=== PATIENT | female | born 1930 | race Caucasian/White ===

== ENCOUNTER 2016-10-01 15:19 | Inpatient (IN) | payer OTHER ==
[~2016-10-01] VITALS: Ht 165.1 cm; Wt 50.4 kg
[~2016-10-01 15:19] MED LIST: ACET325T14 PO; ALBU8.5H3 INH; ALEN70TA3 PO; ALPR0.25 PO; ASPI-496 PO; ATEN25TA PO; BISA10SU65 PR; CALC250T PO; CHOL20003 PO; DOXY100C2 PO; Docusate Sodium PO; FLUT1DIS3 INH; GUAI5SYR PO; IBUP200C PO; IPRA3AMP NPPB; LACT1CAP24 PO; MULT-658 PO; NICO1PAT4 TD; OMEG1CAP6 PO; PARO20TA55 PO; PRED10TA PO; SIMV40TA3 PO; TIOT18CA INH; VITA1CAP PO
[2016-10-01] MEDS ORDERED: ALBUTEROL/IPRATROPIUM 2.5MG/0.5MG, 3 ML NPPB SCH (15:30)
[2016-10-01] MEDS ORDERED: SODIUM CHLORIDE FLUSH 10ML SYR IVF ONE (15:30)
[2016-10-01] MEDS ORDERED: methylPREDNISolone SOD SUCC 125 MG/2 ML IVP ONE (15:30)
[2016-10-01] MEDS ORDERED: methylPREDNISolone SOD SUCC 125 MG/2 ML ONE (15:48)
[2016-10-01] MEDS ORDERED: ALBUTEROL/IPRATROPIUM 2.5MG/0.5MG, 3 ML ONE (15:48)
[2016-10-01] MEDS: PLEASE ENTER HEIGHT AND WEIGHT MC SCH ×2 (15:50→16:47)
[2016-10-01 16:00] LABS: BLOOD UREA NITROGEN 17 mg/dL (7-18)
[2016-10-01 16:03] LABS: IS PT STATUS REG ER OR PRE ER? YES
[2016-10-01 16:16] LABS: ABG COLLECTION SITE LEFT RADIAL; COLLATERAL CIRCULATION TESTING NORMAL
[2016-10-01] MEDS: methylPREDNISolone SOD SUCC 40 MG/ML IV SCH (16:46)
[2016-10-01] MEDS ORDERED: BISACODYL 10 MG SUPP PR PRN ×2 (17:00→18:00)
[2016-10-01] MEDS ORDERED: GUAIFENESIN/DM 100-10MG, 5ML UDC PO PRN (17:00)
[2016-10-01] MEDS ORDERED: ALBUTEROL SULFATE INH PRN (17:00)
[2016-10-01] MEDS ORDERED: ACETAMINOPHEN 325 MG TABLET PO PRN (17:00)
[2016-10-01] MEDS ORDERED: MORPHINE SULFATE 4 MG/ML, 1ML IVPush PRN (18:00)
[2016-10-01] MEDS ORDERED: POLYETHYLENE GLYCOL 17 GM PACKET PO PRN (18:00)
[2016-10-01] MEDS ORDERED: DOCUSATE 100 MG CAPSULE PO PRN (18:00)
[2016-10-01] MEDS: SODIUM CHLORIDE 0.9% 1,000 ML IV SCH ×2 (18:06→20:00)
[2016-10-01] MEDS ORDERED: HEPARIN 5,000 UNITS/ML, 1ML IV ONE (18:30)
[2016-10-01] MEDS ORDERED: HEPARIN 5,000 UNITS/ML, 1ML IV PRN (18:30)
[2016-10-01] MEDS ORDERED: HEPARIN 25,000 UNITS/500ML PMX 500 ML IV PRN (18:30)
[2016-10-01 18:36] LABS: IS PT STATUS REG ER OR PRE ER? YES
[2016-10-01 20:00] VITALS: BP 106/69
[2016-10-01] MEDS: NICOTINE 14MG/24 HR PATCH.TD24 TD SCH (23:00)
[2016-10-02 00:17] LABS: IS PT STATUS REG ER OR PRE ER? NO
[2016-10-02] MEDS: methylPREDNISolone SOD SUCC 40 MG/ML IV SCH ×3 (02:01→18:22)
[2016-10-02 02:06] VITALS: BP 103/65
[2016-10-02 05:53] LABS: ASPARTATE AMINO TRANSFERASE 40 U/L (15-37); BLOOD UREA NITROGEN 17 mg/dL (7-18)
[2016-10-02] MEDS: SODIUM CHLORIDE 0.9% 1,000 ML IV SCH ×2 (05:53→18:25)
[2016-10-02] MEDS: ASPIRIN 81 MG TABLET EC PO SCH (05:53)
[2016-10-02 06:41] VITALS: BP 125/67
[2016-10-02] MEDS: ALBUTEROL/IPRATROPIUM 2.5MG/0.5MG, 3 ML NPPB PRN ×2 (07:01→14:35)
[2016-10-02] MEDS ORDERED: ASPIRIN 81 MG TABLET EC PO SCH (09:00)
[2016-10-02] MEDS: IBUPROFEN 200 MG TABLET PO SCH ×4 (09:00→20:09)
[2016-10-02] MEDS: MULTIVITAMIN 1 TABLET PO SCH (10:43)
[2016-10-02] MEDS: PAROXETINE 20 MG TABLET PO SCH (10:44)
[2016-10-02] MEDS: SIMVASTATIN 40 MG TABLET PO SCH (10:44)
[2016-10-02 11:34] LABS: IS PT STATUS REG ER OR PRE ER? NO
[2016-10-02 12:56] VITALS: BP 118/65
[2016-10-02] MEDS: NICOTINE 14MG/24 HR PATCH.TD24 TD SCH (17:00)
[2016-10-02 18:21] VITALS: BP 135/79
[2016-10-02] MEDS: METOPROLOL TARTRATE 25 MG TABLET PO SCH (18:22)
[2016-10-02 18:59] VITALS: BP 138/80
[2016-10-03] MEDS: methylPREDNISolone SOD SUCC 40 MG/ML IV SCH ×3 (00:11→17:58)
[2016-10-03 03:04] VITALS: BP 113/68
[2016-10-03 05:15] VITALS: BP 124/70
[2016-10-03] MEDS: ASPIRIN 81 MG TABLET EC PO SCH (05:25)
[2016-10-03] MEDS: METOPROLOL TARTRATE 25 MG TABLET PO SCH ×2 (05:28→17:58)
[2016-10-03 07:39] VITALS: BP 136/71
[2016-10-03] MEDS: ALBUTEROL/IPRATROPIUM 2.5MG/0.5MG, 3 ML NPPB PRN (08:00)
[2016-10-03] MEDS: SIMVASTATIN 40 MG TABLET PO SCH (09:04)
[2016-10-03] MEDS: PAROXETINE 20 MG TABLET PO SCH (09:04)
[2016-10-03] MEDS: MULTIVITAMIN 1 TABLET PO SCH (09:04)
[2016-10-03] MEDS: IBUPROFEN 200 MG TABLET PO SCH ×3 (09:05→20:01)
[2016-10-03] MEDS ORDERED: HEPARIN 5,000 UNITS/ML, 1ML SQ SCH (11:00)
[2016-10-03 12:36] VITALS: BP 143/73
[2016-10-03] MEDS: HEPARIN 5,000 UNITS/ML, 1ML SQ SCH ×2 (12:36→19:59)
[2016-10-03] MEDS: LISINOPRIL 5 MG TABLET PO SCH (12:36)
[2016-10-03] MEDS: CLOPIDOGREL 75 MG TABLET PO SCH (12:36)
[2016-10-03 15:01] VITALS: BP 139/75
[2016-10-03] MEDS: NICOTINE 14MG/24 HR PATCH.TD24 TD SCH (17:57)
[2016-10-03 19:23] VITALS: BP 157/77
[2016-10-04] MEDS: methylPREDNISolone SOD SUCC 40 MG/ML IV SCH ×2 (00:31→09:56)
[2016-10-04 03:30] LABS: BLOOD UREA NITROGEN 21 mg/dL (7-18)
[2016-10-04 04:21] VITALS: BP 133/69
[2016-10-04] MEDS: HEPARIN 5,000 UNITS/ML, 1ML SQ SCH ×3 (04:22→21:19)
[2016-10-04] MEDS: ASPIRIN 81 MG TABLET EC PO SCH (05:34)
[2016-10-04] MEDS: METOPROLOL TARTRATE 25 MG TABLET PO SCH ×2 (05:34→18:30)
[2016-10-04 05:35] VITALS: BP 146/75
[2016-10-04 07:14] VITALS: BP 137/67
[2016-10-04] MEDS: IBUPROFEN 200 MG TABLET PO SCH ×3 (09:00→21:19)
[2016-10-04] MEDS: PAROXETINE 20 MG TABLET PO SCH (09:57)
[2016-10-04] MEDS: CLOPIDOGREL 75 MG TABLET PO SCH (09:57)
[2016-10-04] MEDS: LISINOPRIL 5 MG TABLET PO SCH (09:57)
[2016-10-04] MEDS: MULTIVITAMIN 1 TABLET PO SCH (09:57)
[2016-10-04] MEDS: SIMVASTATIN 40 MG TABLET PO SCH (09:57)
[2016-10-04 13:46] VITALS: BP 118/72
[2016-10-04] MEDS: NICOTINE 14MG/24 HR PATCH.TD24 TD SCH (17:00)
[2016-10-04 18:28] VITALS: BP 110/68
[2016-10-04 20:00] VITALS: BP 111/65
[2016-10-05 01:21] VITALS: BP 124/70
[2016-10-05 05:39] VITALS: BP 127/75
[2016-10-05] MEDS: METOPROLOL TARTRATE 25 MG TABLET PO SCH (05:40)
[2016-10-05] MEDS: HEPARIN 5,000 UNITS/ML, 1ML SQ SCH ×2 (05:40→13:00)
[2016-10-05] MEDS: ASPIRIN 81 MG TABLET EC PO SCH (05:40)
[2016-10-05 06:00] LABS: BLOOD UREA NITROGEN 25 mg/dL (7-18)
[2016-10-05 07:42] VITALS: BP 127/70
[2016-10-05] MEDS: CLOPIDOGREL 75 MG TABLET PO SCH (07:48)
[2016-10-05] MEDS: LISINOPRIL 5 MG TABLET PO SCH (07:48)
[2016-10-05] MEDS: MULTIVITAMIN 1 TABLET PO SCH (07:48)
[2016-10-05] MEDS: IBUPROFEN 200 MG TABLET PO SCH (07:48)
[2016-10-05] MEDS: PAROXETINE 20 MG TABLET PO SCH (07:48)
[2016-10-05 13:11] VITALS: BP 103/56
[2016-10-05] MEDS ORDERED: PRED10TA PO (14:32)
== END 2016-10-05 16:20 | disposition home health service (06) | DRG 682 ==
LOC: ED 18:12 → EDIP 18:31 → 5SO 19:25 → DCLOUNGE 10-05 15:51
PROVIDERS: ADMIT Internal Medicine; ATTEND Internal Medicine
DX: N17.0 Acute kidney failure with tubular necrosis (principal); J96.01 Acute respiratory failure with hypoxia; E87.2 Acidosis; J44.1 Chronic obstructive pulmonary disease with (acute) exacerbation; D72.829 Elevated white blood cell count, unspecified; E78.00 Pure hypercholesterolemia, unspecified; E78.5 Hyperlipidemia, unspecified; E86.0 Dehydration; F32.9 Major depressive disorder, single episode, unspecified; F41.9 Anxiety disorder, unspecified; I10 Essential (primary) hypertension; I25.2 Old myocardial infarction; I27.2 Other secondary pulmonary hypertension; I44.7 Left bundle-branch block, unspecified; I95.9 Hypotension, unspecified; M81.0 Age-related osteoporosis without current pathological fracture; M19.90 Unspecified osteoarthritis, unspecified site; Z51.5 Encounter for palliative care; Z66 Do not resuscitate; Z79.83 Long term (current) use of bisphosphonates; Z80.8 Family history of malignant neoplasm of other organs or systems; Z83.3 Family history of diabetes mellitus; Z86.73 Personal history of transient ischemic attack (TIA), and cerebral infarction without residual deficits; Z87.891 Personal history of nicotine dependence; Z99.81 Dependence on supplemental oxygen; Z79.82 Long term (current) use of aspirin; Z79.899 Other long term (current) drug therapy
CPT/HCPCS: 36415; 36600; 71010; 80048; 80053; 80061; 81001; 82040; 82803; 83605; 83735; 83880; 84100; 84145; 84443; 84484; 85025; 85520; 85610; 85730; 87040; 87086; 93005; 93306; 94640; 96361; 96374; J1644; J7620; J2920; J2930; J7030; J7512

== ENCOUNTER 2017-04-27 04:18 | Inpatient (IN) | payer OTHER ==
[~2017-04-27] VITALS: Ht 165.1 cm; Wt 52.6 kg
[~2017-04-27 04:18] MED LIST changes: -ALBU8.5H3 INH; +ALBU8.5H8 INH; +CHOL2000 PO; -CHOL20003 PO; -IBUP200C PO; +IBUP200C5 PO; +NICO-486 TD; -NICO1PAT4 TD; -PARO20TA55 PO; +PARO20TA98 PO
[2017-04-27] MEDS ORDERED: methylPREDNISolone SOD SUCC 125 MG/2 ML ONE (04:27)
[2017-04-27 04:50] LABS: HEMATOCRIT 38.2 % (34.6-47.8); HEMOGLOBIN 12.9 g/dL (11.7-16.4); WHITE BLOOD COUNT 12.4 x10^3/uL (3.4-10)
[2017-04-27] MEDS ORDERED: TIOT4MIS3 INH (04:57)
[2017-04-27] MEDS ORDERED: SODIUM CHLORIDE 0.9% 1,000ML IVBOLUS ONE (05:00)
[2017-04-27] MEDS ORDERED: methylPREDNISolone SOD SUCC 125 MG/2 ML IVP ONE (05:00)
[2017-04-27 05:02] LABS: ASPARTATE AMINO TRANSFERASE 27 U/L (15-37); BLOOD UREA NITROGEN 13 mg/dL (7-18)
[2017-04-27 05:07] LABS: IS PT STATUS REG ER OR PRE ER? YES
[2017-04-27] MEDS ORDERED: ENOXAPARIN 40 MG/0.4 ML SQ SCH (05:30)
[2017-04-27] MEDS ORDERED: ALBUTEROL/IPRATROPIUM 2.5MG/0.5MG, 3 ML HHN SCH (05:30)
[2017-04-27] MEDS: methylPREDNISolone SOD SUCC 40 MG/ML IVPush SCH ×4 (05:30→23:47)
[2017-04-27 05:37] LABS: DIFF TOTAL CELLS COUNTED 100 CELL DIFF
[2017-04-27 05:39] LABS: VERIFY COUNTS? YES
[2017-04-27] MEDS ORDERED: LEVOFLOXACIN/PMX 500MG/100ML 100 ML ONE (06:35)
[2017-04-27] MEDS ORDERED: ENOXAPARIN 40 MG/0.4 ML ONE (06:52)
[2017-04-27] MEDS: LEVOFLOXACIN/PMX 500MG/100ML 100 ML IVPB SCH (07:30)
[2017-04-27] MEDS ORDERED: ALBUTEROL SULFATE 2.5 MG/3 ML NPPB PRN (09:00)
[2017-04-27] MEDS: ASPIRIN 81 MG TABLET EC PO SCH (09:38)
[2017-04-27] MEDS: PAROXETINE 20 MG TABLET PO SCH (09:38)
[2017-04-27] MEDS: SIMVASTATIN 40 MG TABLET PO SCH (09:38)
[2017-04-27] MEDS: SODIUM CHLORIDE FLUSH 10ML SYR IVF SCH ×2 (09:39→23:47)
[2017-04-27 10:41] VITALS: BP 141/80
[2017-04-27 11:52] LABS: IS PT STATUS REG ER OR PRE ER? NO
[2017-04-27 12:35] VITALS: BP 146/75
[2017-04-27 12:54] VITALS: BP 134/76
[2017-04-27] MEDS: SODIUM CHLORIDE 0.9% 1,000 ML IV SCH (12:55)
[2017-04-27] MEDS ORDERED: HEPARIN 5,000 UNITS/ML, 1ML IV PRN (14:30)
[2017-04-27] MEDS ORDERED: HEPARIN 5,000 UNITS/ML, 1ML IV ONE (14:30)
[2017-04-27] MEDS: HEPARIN 25,000 UNITS/500ML PMX 500 ML IV PRN (16:41)
[2017-04-27 19:47] VITALS: BP 135/76
[2017-04-27] MEDS ORDERED: ALBUTEROL SULFATE 2.5 MG/3 ML NPPB SCH (21:00)
[2017-04-28 02:00] VITALS: BP 144/74
[2017-04-28] MEDS: SODIUM CHLORIDE 0.9% 1,000 ML IV SCH ×2 (02:31→15:54)
[2017-04-28] MEDS: LEVOFLOXACIN/PMX 500MG/100ML 100 ML IVPB SCH (05:52)
[2017-04-28] MEDS: methylPREDNISolone SOD SUCC 40 MG/ML IVPush SCH ×2 (05:52→20:49)
[2017-04-28] MEDS: HEPARIN 25,000 UNITS/500ML PMX 500 ML IV PRN (05:54)
[2017-04-28 06:35] VITALS: BP 145/73
[2017-04-28 08:12] LABS: HEMATOCRIT 34.2 % (34.6-47.8); HEMOGLOBIN 11.6 g/dL (11.7-16.4); WHITE BLOOD COUNT 8.8 x10^3/uL (3.4-10)
[2017-04-28 08:15] LABS: ASPARTATE AMINO TRANSFERASE 29 U/L (15-37); BLOOD UREA NITROGEN 13 mg/dL (7-18)
[2017-04-28 08:19] LABS: IS PT STATUS REG ER OR PRE ER? NO
[2017-04-28] MEDS: PAROXETINE 20 MG TABLET PO SCH (08:48)
[2017-04-28] MEDS: SIMVASTATIN 40 MG TABLET PO SCH (08:48)
[2017-04-28] MEDS: SODIUM CHLORIDE FLUSH 10ML SYR IVF SCH ×2 (08:49→20:48)
[2017-04-28] MEDS: ASPIRIN 81 MG TABLET EC PO SCH (08:49)
[2017-04-28] MEDS: TIOTROPIUM INH SCH (09:00)
[2017-04-28] MEDS: OLODATEROL INH SCH (09:00)
[2017-04-28] MEDS ORDERED: POTASSIUM CHLORIDE 20 MEQ TAB.ER.PRT PO ONE (09:30)
[2017-04-28] MEDS ORDERED: OMNIPAQUE 350 MG/ML, 100ML BOTTLE ONE (11:02)
[2017-04-28 14:40] VITALS: BP 148/67
[2017-04-28] MEDS ORDERED: ALBUTEROL SULFATE 2.5 MG/3 ML ONE (18:48)
[2017-04-28 19:02] VITALS: BP 136/81
[2017-04-28] MEDS ORDERED: SODIUM CHLORIDE 0.9% 1,000 ML IV SCH (20:00)
[2017-04-28] MEDS ORDERED: ALBUTEROL SULFATE 2.5 MG/3 ML NPPB SCH ×2 (21:00)
[2017-04-29 02:29] VITALS: BP 156/81
[2017-04-29] MEDS: LEVOFLOXACIN/PMX 500MG/100ML 100 ML IVPB SCH (05:03)
[2017-04-29 05:04] VITALS: BP 131/84
[2017-04-29 05:59] LABS: HEMOGLOBIN 11.4 g/dL (11.7-16.4)
[2017-04-29 06:05] LABS: BLOOD UREA NITROGEN 18 mg/dL (7-18)
[2017-04-29 08:20] VITALS: BP 165/77
[2017-04-29] MEDS: PAROXETINE 20 MG TABLET PO SCH (08:51)
[2017-04-29] MEDS: SIMVASTATIN 40 MG TABLET PO SCH (08:52)
[2017-04-29] MEDS: ASPIRIN 81 MG TABLET EC PO SCH (08:52)
[2017-04-29] MEDS: methylPREDNISolone SOD SUCC 40 MG/ML IVPush SCH (08:53)
[2017-04-29] MEDS: TIOTROPIUM INH SCH (08:53)
[2017-04-29] MEDS: OLODATEROL INH SCH (08:53)
[2017-04-29] MEDS: SODIUM CHLORIDE FLUSH 10ML SYR IVF SCH (08:55)
[2017-04-29] MEDS ORDERED: PRED10TA PO (12:04)
[2017-04-29] MEDS ORDERED: ALBUTEROL SULFATE 2.5 MG/3 ML NPPB PRN (15:00)
== END 2017-04-29 14:33 | disposition home or self-care (01) | DRG 682 ==
LOC: ED 05:03 → EDIP 05:12 → 4WST 07:52
PROVIDERS: ADMIT Family Medicine; ATTEND Family Medicine
PROC: 5A09357 Assistance with Respiratory Ventilation, Less than 24 Consecutive Hours, Continuous Positive Airway Pressure (ICD-10-PCS; principal; 2017-04-27)
DX: N17.9 Acute kidney failure, unspecified (principal); J96.20 Acute and chronic respiratory failure, unspecified whether with hypoxia or hypercapnia; E87.2 Acidosis; J44.1 Chronic obstructive pulmonary disease with (acute) exacerbation; F41.9 Anxiety disorder, unspecified; F32.9 Major depressive disorder, single episode, unspecified; D72.829 Elevated white blood cell count, unspecified; E78.5 Hyperlipidemia, unspecified; E87.6 Hypokalemia; F41.1 Generalized anxiety disorder; I10 Essential (primary) hypertension; M81.0 Age-related osteoporosis without current pathological fracture; Z66 Do not resuscitate; Z83.3 Family history of diabetes mellitus; Z86.73 Personal history of transient ischemic attack (TIA), and cerebral infarction without residual deficits; Z87.891 Personal history of nicotine dependence; Z80.9 Family history of malignant neoplasm, unspecified
CPT/HCPCS: 36415; 71010; 71275; 78582; 80048; 80053; 83605; 83735; 84145; 84443; 84484; 85025; 85379; 85520; 87040; 93005; 94640; 94660; 96372; 96374; J1644; J1650; J1956; J7613; Q9967; A9540; A9558; C9898; J2920; J2930; J7030

== ENCOUNTER 2017-09-13 00:04 | Inpatient (IN) | payer OTHER ==
[~2017-09-13] VITALS: Ht 162.6 cm; Wt 53.5 kg
[~2017-09-13 00:04] MED LIST changes: +TIOT4MIS3 INH
[2017-09-13] MEDS ORDERED: ALBUTEROL/IPRATROPIUM 2.5MG/0.5MG, 3 ML ONE (00:11)
[2017-09-13] MEDS ORDERED: methylPREDNISolone SOD SUCC 125 MG/2 ML ONE (00:19)
[2017-09-13] MEDS ORDERED: KETAMINE 10 MG/ML, 20ML ONE (00:20)
[2017-09-13] MEDS ORDERED: SODIUM CHLORIDE FLUSH 10ML SYR IVF ONE (00:30)
[2017-09-13] MEDS ORDERED: KETAMINE 100 MG/ML, 5ML IV ONE (00:30)
[2017-09-13] MEDS ORDERED: methylPREDNISolone SOD SUCC 125 MG/2 ML IVP ONE (00:30)
[2017-09-13 01:21] LABS: ALANINE AMINOTRANSFERASE 35 U/L (12-78); ALBUMIN 3.6 g/dL (3.4-5.0); ANION GAP 10 mmol/L (5-15); CALCIUM 8.1 mg/dL (8.5-10.1); CHLORIDE 103 mmol/L (98-107); CREATININE 1.18 mg/dL (0.55-1.02)
[2017-09-13 01:25] LABS: ALKALINE PHOSPHATASE 81 U/L (45-117); BILIRUBIN,TOTAL 0.4 mg/dL (0.2-1.0); TROPONIN I 0.069 ng/mL (0.000-0.045)
[2017-09-13 01:35] LABS: INTERNATIONAL NORMALIZED RATIO 0.97 (0.93-1.1)
[2017-09-13 01:54] LABS: MEAN CORPUSCULAR HEMOGLOBIN 29.8 pg (27.0-34.8); MEAN CORPUSCULAR HGB CONC 33.3 g/dL (32.4-35.8); MEAN CORPUSCULAR VOLUME 89.6 fL (80-100); MEAN PLATELET VOLUME 8.3 fL (7.4-10.4); PLATELET COUNT 312 x10^3/uL (130-400); RED BLOOD COUNT 4.45 x10^6/uL (3.82-5.3); RED CELL DISTRIBUTION WIDTH 14.7 % (9.6-15.2)
[2017-09-13 02:28] LABS: BASOPHILS # (AUTO) 0.06 x10^3/uL (0-0.1); BASOPHILS % (AUTO) 1 % (0-1); EOSINOPHILS # (AUTO) 1.31 x10^3/uL (0-0.4); EOSINOPHILS % (AUTO) 10 % (1-7); LYMPHOCYTES # (AUTO) 5.27 x10^3/uL (1-3.4); LYMPHOCYTES % (AUTO) 40 % (22-44); MD SCAN; MONOCYTES % (AUTO) 5 % (2-9); NEUTROPHILS # (AUTO) 5.88 x10^3/uL (1.8-6.8); NEUTROPHILS % (AUTO) 45 % (42-75)
[2017-09-13] MEDS ORDERED: MAGNESIUM SULFATE 1 GM in SODIUM CHLORIDE 0.9% 50 ML IV ONE (02:30)
[2017-09-13] MEDS ORDERED: MAGNESIUM SULFATE 1 GM/2 ML IVPush ONE (02:30)
[2017-09-13] MEDS ORDERED: SODIUM CHLORIDE 0.9% 1,000 ML IV SCH (03:41)
[2017-09-13] MEDS ORDERED: ALBUTEROL SULFATE 2.5 MG/3 ML HHN PRN (04:00)
[2017-09-13] MEDS ORDERED: ALBUTEROL/IPRATROPIUM 2.5MG/0.5MG, 3 ML NPPB PRN ×2 (04:00→05:00)
[2017-09-13] MEDS ORDERED: ONDANSETRON 2MG/ML, 2ML IVPush PRN (04:00)
[2017-09-13] MEDS ORDERED: ENOXAPARIN 40 MG/0.4 ML SQ SCH (04:00)
[2017-09-13] MEDS ORDERED: ACETAMINOPHEN 325 MG TABLET PO PRN (04:00)
[2017-09-13] MEDS ORDERED: morphine SULFATE 10 MG/ML, 1ML IVPush PRN (04:00)
[2017-09-13] MEDS ORDERED: POLYETHYLENE GLYCOL 17 GM PACKET PO PRN (04:00)
[2017-09-13] MEDS: methylPREDNISolone SOD SUCC 125 MG/2 ML IVPush SCH ×3 (06:24→17:44)
[2017-09-13] MEDS: ALBUTEROL/IPRATROPIUM 2.5MG/0.5MG, 3 ML NPPB SCH ×4 (06:36→19:40)
[2017-09-13] MEDS: OMEGA-3/FISH OIL CAPSULE PO SCH (08:31)
[2017-09-13] MEDS: CALCIUM CARBONATE 500 MG TAB.CHEW PO SCH ×2 (08:31→20:14)
[2017-09-13] MEDS: PAROXETINE 20 MG TABLET PO SCH (08:31)
[2017-09-13] MEDS: ASPIRIN 81 MG TABLET EC PO SCH (08:31)
[2017-09-13] MEDS: SIMVASTATIN 40 MG TABLET PO SCH (08:31)
[2017-09-13] MEDS: MULTIVITAMIN 1 TABLET PO SCH (08:31)
[2017-09-13] MEDS: DOCUSATE 100 MG CAPSULE PO SCH ×2 (08:31→20:14)
[2017-09-13] MEDS: CHOLECALCIFEROL 1,000 UNIT TABLET PO SCH (08:32)
[2017-09-13] MEDS: TEMPLATE NON-FORMULARY MED. (Tiotropium Br/Olodaterol HCl (Stiolto Respimat Inhal Spray) 2 INH SCH (08:39)
[2017-09-13 09:02] LABS: TROPONIN I 0.294 ng/mL (0.000-0.045)
[2017-09-13] MEDS: DOXYCYCLINE 100MG TABLET PO SCH ×2 (10:47→20:14)
[2017-09-13] MEDS: INSULIN LISPRO 100 UNITS/ML, PEN SQ-INSULIN SCH ×3 (12:40→20:14)
[2017-09-13 13:10] VITALS: BP 108/65
[2017-09-13 14:26] LABS: TROPONIN I 0.187 ng/mL (0.000-0.045)
[2017-09-13 19:59] VITALS: BP 162/79
[2017-09-14] MEDS: methylPREDNISolone SOD SUCC 125 MG/2 ML IVPush SCH ×5 (00:05→23:46)
[2017-09-14 01:09] VITALS: BP 119/66
[2017-09-14] MEDS ORDERED: ENOXAPARIN 30 MG/0.3 ML SQ SCH (05:00)
[2017-09-14 05:12] LABS: MEAN CORPUSCULAR HEMOGLOBIN 29.2 pg (27.0-34.8); MEAN CORPUSCULAR HGB CONC 33.1 g/dL (32.4-35.8); MEAN PLATELET VOLUME 8.1 fL (7.4-10.4); PLATELET COUNT 286 x10^3/uL (130-400); RED BLOOD COUNT 4.02 x10^6/uL (3.82-5.3); RED CELL DISTRIBUTION WIDTH 14.4 % (9.6-15.2)
[2017-09-14 05:17] LABS: ANION GAP 5 mmol/L (5-15); CALCIUM 8.7 mg/dL (8.5-10.1); CHLORIDE 109 mmol/L (98-107); CREATININE 0.96 mg/dL (0.55-1.02)
[2017-09-14 05:18] LABS: ALANINE AMINOTRANSFERASE 31 U/L (12-78); ALBUMIN 3.7 g/dL (3.4-5.0)
[2017-09-14 05:19] LABS: ALKALINE PHOSPHATASE 68 U/L (45-117); BILIRUBIN,TOTAL 0.4 mg/dL (0.2-1.0); TOTAL PROTEIN 6.7 g/dL (6.4-8.2)
[2017-09-14 05:53] LABS: BASOPHILS # (AUTO) 0.02 x10^3/uL (0-0.1); BASOPHILS % (AUTO) 0 % (0-1); EOSINOPHILS % (AUTO) 0 % (1-7); LYMPHOCYTES # (AUTO) 1.24 x10^3/uL (1-3.4); LYMPHOCYTES % (AUTO) 12 % (22-44); MD SCAN; MONOCYTES # (AUTO) 0.59 x10^3/uL (0.2-0.8); MONOCYTES % (AUTO) 6 % (2-9); NEUTROPHILS # (AUTO) 8.13 x10^3/uL (1.8-6.8); NEUTROPHILS % (AUTO) 82 % (42-75)
[2017-09-14] MEDS: ALBUTEROL/IPRATROPIUM 2.5MG/0.5MG, 3 ML NPPB SCH ×4 (07:00→18:54)
[2017-09-14] MEDS: MULTIVITAMIN 1 TABLET PO SCH (08:01)
[2017-09-14] MEDS: OMEGA-3/FISH OIL CAPSULE PO SCH (08:01)
[2017-09-14] MEDS: CALCIUM CARBONATE 500 MG TAB.CHEW PO SCH ×2 (08:01→20:40)
[2017-09-14] MEDS: ASPIRIN 81 MG TABLET EC PO SCH (08:01)
[2017-09-14] MEDS: CHOLECALCIFEROL 1,000 UNIT TABLET PO SCH (08:01)
[2017-09-14] MEDS: DOXYCYCLINE 100MG TABLET PO SCH ×2 (08:01→20:40)
[2017-09-14] MEDS: PAROXETINE 20 MG TABLET PO SCH (08:02)
[2017-09-14] MEDS: DOCUSATE 100 MG CAPSULE PO SCH ×2 (08:02→20:40)
[2017-09-14] MEDS: SIMVASTATIN 40 MG TABLET PO SCH (08:02)
[2017-09-14] MEDS: TEMPLATE NON-FORMULARY MED. (Tiotropium Br/Olodaterol HCl (Stiolto Respimat Inhal Spray) 2 INH SCH (08:03)
[2017-09-14 08:20] VITALS: BP 137/76
[2017-09-14] MEDS: INSULIN LISPRO 100 UNITS/ML, PEN SQ-INSULIN SCH ×4 (08:30→20:41)
[2017-09-14 08:53] LABS: TROPONIN I 0.099 ng/mL (0.000-0.045)
[2017-09-14] MEDS ORDERED: SODIUM CHLORIDE 0.9% 1,000 ML IV SCH (09:00)
[2017-09-14] MEDS ORDERED: LORazepam 0.5MG TABLET PO PRN (11:00)
[2017-09-14 13:32] LABS: HEMOGLOBIN A1C 5.8 % (4.2-6.3)
[2017-09-14 15:28] VITALS: BP 147/97
[2017-09-14] MEDS ORDERED: GUAIFENESIN/DM 100-10MG, 5ML UDC PO PRN (16:00)
[2017-09-14] MEDS: CARVEDILOL 3.125 MG TABLET PO SCH (18:09)
[2017-09-14 19:54] VITALS: BP 163/88
[2017-09-15 01:25] VITALS: BP 127/80
[2017-09-15] MEDS: SODIUM CHLORIDE 0.9% 1,000 ML IV SCH (04:06)
[2017-09-15] MEDS: methylPREDNISolone SOD SUCC 125 MG/2 ML IVPush SCH (06:05)
[2017-09-15] MEDS: CARVEDILOL 3.125 MG TABLET PO SCH ×2 (06:05→18:47)
[2017-09-15] MEDS: ENOXAPARIN 40 MG/0.4 ML SQ SCH (06:05)
[2017-09-15] MEDS: ALBUTEROL/IPRATROPIUM 2.5MG/0.5MG, 3 ML NPPB SCH ×4 (07:00→19:55)
[2017-09-15] MEDS: INSULIN LISPRO 100 UNITS/ML, PEN SQ-INSULIN SCH ×4 (07:00→20:37)
[2017-09-15 07:54] VITALS: BP 163/85
[2017-09-15 08:16] VITALS: BP 163/85
[2017-09-15] MEDS: DOCUSATE 100 MG CAPSULE PO SCH ×2 (09:00→20:37)
[2017-09-15] MEDS: PAROXETINE 20 MG TABLET PO SCH (10:55)
[2017-09-15] MEDS: CHOLECALCIFEROL 1,000 UNIT TABLET PO SCH (10:55)
[2017-09-15] MEDS: MULTIVITAMIN 1 TABLET PO SCH (10:55)
[2017-09-15] MEDS: ASPIRIN 81 MG TABLET EC PO SCH (10:55)
[2017-09-15] MEDS: TEMPLATE NON-FORMULARY MED. (Tiotropium Br/Olodaterol HCl (Stiolto Respimat Inhal Spray) 2 INH SCH (10:55)
[2017-09-15] MEDS: OMEGA-3/FISH OIL CAPSULE PO SCH (10:55)
[2017-09-15] MEDS: DOXYCYCLINE 100MG TABLET PO SCH ×2 (10:56→20:37)
[2017-09-15] MEDS: SIMVASTATIN 40 MG TABLET PO SCH (10:56)
[2017-09-15] MEDS: HEPARIN 5,000 UNITS/ML, 1ML SQ SCH ×2 (10:56→20:37)
[2017-09-15] MEDS: CALCIUM CARBONATE 500 MG TAB.CHEW PO SCH ×2 (10:56→20:37)
[2017-09-15 15:05] VITALS: BP 159/81
[2017-09-15 18:35] VITALS: BP 139/75
[2017-09-16 01:38] VITALS: BP 146/77
[2017-09-16] MEDS: SODIUM CHLORIDE 0.9% 1,000 ML IV SCH ×2 (05:11→22:32)
[2017-09-16] MEDS: ENOXAPARIN 40 MG/0.4 ML SQ SCH (05:50)
[2017-09-16] MEDS: CARVEDILOL 3.125 MG TABLET PO SCH (05:50)
[2017-09-16] MEDS: INSULIN LISPRO 100 UNITS/ML, PEN SQ-INSULIN SCH ×2 (07:00→11:00)
[2017-09-16 07:03] VITALS: BP 156/89
[2017-09-16] MEDS: ALBUTEROL/IPRATROPIUM 2.5MG/0.5MG, 3 ML NPPB SCH ×4 (08:06→18:46)
[2017-09-16] MEDS ORDERED: methylPREDNISolone SOD SUCC 40 MG/ML IVPush SCH (09:00)
[2017-09-16] MEDS: TEMPLATE NON-FORMULARY MED. (Tiotropium Br/Olodaterol HCl (Stiolto Respimat Inhal Spray) 2 INH SCH (09:00)
[2017-09-16] MEDS: CHOLECALCIFEROL 1,000 UNIT TABLET PO SCH (09:20)
[2017-09-16] MEDS: CALCIUM CARBONATE 500 MG TAB.CHEW PO SCH ×2 (09:20→20:26)
[2017-09-16] MEDS: ASPIRIN 81 MG TABLET EC PO SCH (09:20)
[2017-09-16] MEDS: OMEGA-3/FISH OIL CAPSULE PO SCH (09:20)
[2017-09-16] MEDS: HEPARIN 5,000 UNITS/ML, 1ML SQ SCH ×2 (09:20→20:26)
[2017-09-16] MEDS: SIMVASTATIN 40 MG TABLET PO SCH (09:21)
[2017-09-16] MEDS: MULTIVITAMIN 1 TABLET PO SCH (09:21)
[2017-09-16] MEDS: DOCUSATE 100 MG CAPSULE PO SCH ×2 (09:21→20:26)
[2017-09-16] MEDS: PAROXETINE 20 MG TABLET PO SCH (09:21)
[2017-09-16 12:11] VITALS: BP 119/64
[2017-09-16] MEDS: CARVEDILOL 6.25 MG TABLET PO SCH (17:15)
[2017-09-16 19:50] VITALS: BP 115/62
[2017-09-17 01:18] VITALS: BP 142/79
[2017-09-17 05:31] VITALS: BP 146/93
[2017-09-17] MEDS: CARVEDILOL 6.25 MG TABLET PO SCH ×2 (05:33→18:03)
[2017-09-17] MEDS: ALBUTEROL/IPRATROPIUM 2.5MG/0.5MG, 3 ML NPPB SCH ×3 (07:00→15:00)
[2017-09-17] MEDS: CALCIUM CARBONATE 500 MG TAB.CHEW PO SCH (07:43)
[2017-09-17] MEDS: HEPARIN 5,000 UNITS/ML, 1ML SQ SCH (07:43)
[2017-09-17] MEDS: CHOLECALCIFEROL 1,000 UNIT TABLET PO SCH (07:43)
[2017-09-17] MEDS: OMEGA-3/FISH OIL CAPSULE PO SCH (07:43)
[2017-09-17] MEDS: SIMVASTATIN 40 MG TABLET PO SCH (07:43)
[2017-09-17] MEDS: DOCUSATE 100 MG CAPSULE PO SCH (07:43)
[2017-09-17] MEDS: MULTIVITAMIN 1 TABLET PO SCH (07:43)
[2017-09-17] MEDS: PAROXETINE 20 MG TABLET PO SCH (07:43)
[2017-09-17] MEDS: TEMPLATE NON-FORMULARY MED. (Tiotropium Br/Olodaterol HCl (Stiolto Respimat Inhal Spray) 2 INH SCH (07:44)
[2017-09-17] MEDS: ASPIRIN 81 MG TABLET EC PO SCH (07:44)
[2017-09-17 07:58] VITALS: BP 144/73
[2017-09-17] MEDS ORDERED: CARV6.2512 PO (12:25)
[2017-09-17 13:23] VITALS: BP 114/67
== END 2017-09-17 19:11 | disposition home health service (06) | DRG 189 ==
LOC: ED 02:08 → EDIP 02:37 → CCU 04:15 → 4EST 11:25
PROVIDERS: ADMIT Hospitalist; ATTEND Hospitalist
PROC: 5A09357 Assistance with Respiratory Ventilation, Less than 24 Consecutive Hours, Continuous Positive Airway Pressure (ICD-10-PCS; principal; 2017-09-13)
DX: J96.21 Acute and chronic respiratory failure with hypoxia (principal); E87.4 Mixed disorder of acid-base balance; I12.0 Hypertensive chronic kidney disease with stage 5 chronic kidney disease or end stage renal disease; I24.8 Other forms of acute ischemic heart disease; J44.1 Chronic obstructive pulmonary disease with (acute) exacerbation; Z99.81 Dependence on supplemental oxygen; T38.0X5A Adverse effect of glucocorticoids and synthetic analogues, initial encounter; R73.9 Hyperglycemia, unspecified; E78.5 Hyperlipidemia, unspecified; F41.1 Generalized anxiety disorder; F41.8 Other specified anxiety disorders; I44.7 Left bundle-branch block, unspecified; J98.4 Other disorders of lung; M81.0 Age-related osteoporosis without current pathological fracture; Z66 Do not resuscitate; Z86.73 Personal history of transient ischemic attack (TIA), and cerebral infarction without residual deficits; Z87.891 Personal history of nicotine dependence
CPT/HCPCS: 36415; 36600; 71045; 80053; 82803; 82962; 83036; 83605; 83735; 83880; 84100; 84484; 85025; 85610; 85730; 87040; 87081; 93005; 94640; 94660; 96365; 96375; J1644; J1650; J3475; J7620; J1815; J2930; J7030

== ENCOUNTER 2017-11-11 19:39 | Inpatient (IN) | payer OTHER ==
[~2017-11-11] VITALS: Ht 162.6 cm; Wt 53.0 kg
[~2017-11-11 19:39] MED LIST changes: +CARV6.2512 PO
[2017-11-11] MEDS ORDERED: ALBUTEROL 0.5%, 20ML ONE (19:50)
[2017-11-11] MEDS ORDERED: ALBUTEROL 0.5%, 20ML NPPB SCH (20:00)
[2017-11-11] MEDS ORDERED: SODIUM CHLORIDE FLUSH 10ML SYR IVF ONE (20:00)
[2017-11-11 20:07] LABS: BASOPHILS # (AUTO) 0.15 x10^3/uL (0-0.1); BASOPHILS % (AUTO) 2 % (0-1); EOSINOPHILS # (AUTO) 0.79 x10^3/uL (0-0.4); EOSINOPHILS % (AUTO) 8 % (1-7); LYMPHOCYTES # (AUTO) 3.56 x10^3/uL (1-3.4); LYMPHOCYTES % (AUTO) 36 % (22-44); MD NO; MEAN CORPUSCULAR HEMOGLOBIN 29.8 pg (27.0-34.8); MEAN CORPUSCULAR HGB CONC 33.9 g/dL (32.4-35.8); MEAN CORPUSCULAR VOLUME 87.9 fL (80-100); MEAN PLATELET VOLUME 7.9 fL (7.4-10.4); MONOCYTES # (AUTO) 1.15 x10^3/uL (0.2-0.8); MONOCYTES % (AUTO) 12 % (2-9); NEUTROPHILS # (AUTO) 4.16 x10^3/uL (1.8-6.8); NEUTROPHILS % (AUTO) 42 % (42-75); PLATELET COUNT 372 x10^3/uL (130-400); RED BLOOD COUNT 4.05 x10^6/uL (3.82-5.3); RED CELL DISTRIBUTION WIDTH 15.1 % (9.6-15.2)
[2017-11-11 20:08] LABS: ALANINE AMINOTRANSFERASE 30 U/L (12-78); ALBUMIN 3.9 g/dL (3.4-5.0); ANION GAP 8 mmol/L (5-15); CALCIUM 8.6 mg/dL (8.5-10.1); CHLORIDE 99 mmol/L (98-107); CREATININE 1.14 mg/dL (0.55-1.02)
[2017-11-11 20:12] LABS: ALKALINE PHOSPHATASE 75 U/L (45-117); BILIRUBIN,TOTAL 0.4 mg/dL (0.2-1.0); TOTAL PROTEIN 6.9 g/dL (6.4-8.2); TROPONIN I < 0.015 ng/mL (0.000-0.045)
[2017-11-11] MEDS ORDERED: METH4TAB PO (20:25)
[2017-11-11] MEDS ORDERED: OXYcodone IR 5MG TABLET PO PRN (23:00)
[2017-11-11] MEDS ORDERED: morphine SULFATE 10 MG/ML, 1ML IVPush PRN (23:00)
[2017-11-11] MEDS ORDERED: hydrALAzine 20 MG/ML, 1ML IVPush PRN (23:00)
[2017-11-11] MEDS ORDERED: BISACODYL 10 MG SUPP PR PRN (23:00)
[2017-11-11] MEDS ORDERED: ONDANSETRON 2MG/ML, 2ML IVPush PRN (23:00)
[2017-11-11] MEDS ORDERED: ACETAMINOPHEN 325 MG TABLET PO PRN (23:00)
[2017-11-11] MEDS ORDERED: DOCUSATE 100 MG CAPSULE PO PRN (23:00)
[2017-11-11] MEDS ORDERED: PROMETHAZINE 25 MG/ML, 1ML IM PRN (23:00)
[2017-11-11] MEDS ORDERED: ONDANSETRON ODT 4 MG PO PRN (23:00)
[2017-11-11] MEDS: ALBUTEROL/IPRATROPIUM 2.5MG/0.5MG, 3 ML NPPB SCH (23:00)
[2017-11-11 23:09] VITALS: BP 123/71
[2017-11-11] MEDS: methylPREDNISolone SOD SUCC 125 MG/2 ML IVPush SCH (23:33)
[2017-11-11] MEDS: DOXYCYCLINE 100MG TABLET PO SCH (23:34)
[2017-11-11] MEDS: HEPARIN 5,000 UNITS/ML, 1ML SQ SCH (23:34)
[2017-11-11 23:35] LABS: FREE T4 (FREE THYROXINE) 0.74 ng/dL (0.76-1.46); THYROID STIMULATING HORMONE 5.92 mIU/L (0.358-3.740)
[2017-11-11 23:41] LABS: HEMOGLOBIN A1C 5.9 % (4.2-6.3)
[2017-11-12 03:37] VITALS: BP 105/59
[2017-11-12 04:12] LABS: MICROSCOPIC AUTO
[2017-11-12 04:14] LABS: CULTURE INDICATED? YES
[2017-11-12 05:32] LABS: BASOPHILS # (AUTO) 0.02 x10^3/uL (0-0.1); BASOPHILS % (AUTO) 0 % (0-1); EOSINOPHILS % (AUTO) 0 % (1-7); LYMPHOCYTES # (AUTO) 1.28 x10^3/uL (1-3.4); LYMPHOCYTES % (AUTO) 20 % (22-44); MD NO; MEAN CORPUSCULAR HEMOGLOBIN 29.5 pg (27.0-34.8); MEAN CORPUSCULAR HGB CONC 33.4 g/dL (32.4-35.8); MEAN CORPUSCULAR VOLUME 88.4 fL (80-100); MEAN PLATELET VOLUME 7.8 fL (7.4-10.4); MONOCYTES # (AUTO) 0.09 x10^3/uL (0.2-0.8); MONOCYTES % (AUTO) 1 % (2-9); NEUTROPHILS # (AUTO) 5.15 x10^3/uL (1.8-6.8); NEUTROPHILS % (AUTO) 79 % (42-75); PLATELET COUNT 350 x10^3/uL (130-400); RED BLOOD COUNT 3.86 x10^6/uL (3.82-5.3); RED CELL DISTRIBUTION WIDTH 15.1 % (9.6-15.2)
[2017-11-12] MEDS: CARVEDILOL 6.25 MG TABLET PO SCH ×2 (05:32→17:03)
[2017-11-12] MEDS: methylPREDNISolone SOD SUCC 125 MG/2 ML IVPush SCH ×4 (05:33→23:12)
[2017-11-12 05:38] LABS: CHLORIDE 100 mmol/L (98-107)
[2017-11-12 05:44] LABS: ALANINE AMINOTRANSFERASE 26 U/L (12-78); ALBUMIN 3.6 g/dL (3.4-5.0); ALKALINE PHOSPHATASE 66 U/L (45-117); ANION GAP 7 mmol/L (5-15); BILIRUBIN,TOTAL 0.5 mg/dL (0.2-1.0); CHOL/HDL RATIO 2.2; CHOLESTEROL, TOTAL 192 mg/dL (140-239); CREATININE 0.89 mg/dL (0.55-1.02); HDL CHOL % 46 % (28-40); HDL CHOLESTEROL (DIRECT) 89 mg/dL (40-60); LDL CHOLESTEROL,CALCULATED 94 mg/dL (54-169); LDL/HDL RATIO 1.1 (0.5-3.0); TOTAL PROTEIN 6.6 g/dL (6.4-8.2); TRIGLYCERIDES 47 mg/dL (50-200); VLDL CHOLESTEROL 9 mg/dL (0-25)
[2017-11-12] MEDS: ALBUTEROL/IPRATROPIUM 2.5MG/0.5MG, 3 ML NPPB SCH ×4 (07:00→19:20)
[2017-11-12 07:05] VITALS: BP 109/66
[2017-11-12] MEDS: ASPIRIN 81 MG TABLET EC PO SCH (08:22)
[2017-11-12] MEDS: SIMVASTATIN 40 MG TABLET PO SCH (08:22)
[2017-11-12] MEDS: HEPARIN 5,000 UNITS/ML, 1ML SQ SCH ×3 (08:22→23:12)
[2017-11-12] MEDS: CHOLECALCIFEROL 1,000 UNIT TABLET PO SCH (08:22)
[2017-11-12] MEDS: DOCUSATE 100 MG CAPSULE PO SCH ×2 (08:23→20:53)
[2017-11-12] MEDS: OMEGA-3/FISH OIL CAPSULE PO SCH (08:23)
[2017-11-12] MEDS: DOXYCYCLINE 100MG TABLET PO SCH ×2 (08:23→20:50)
[2017-11-12] MEDS: MULTIVITAMIN 1 TABLET PO SCH (08:23)
[2017-11-12] MEDS: PAROXETINE 20 MG TABLET PO SCH (08:23)
[2017-11-12] MEDS: SENNA/DOCUSATE TABLET PO SCH (08:23)
[2017-11-12] MEDS: CALCIUM CITRATE 950 MG TABLET PO SCH (11:22)
[2017-11-12 14:01] VITALS: BP 149/74
[2017-11-12 20:02] VITALS: BP 117/66
[2017-11-13 01:48] VITALS: BP 128/69
[2017-11-13] MEDS: CARVEDILOL 6.25 MG TABLET PO SCH (05:11)
[2017-11-13] MEDS: methylPREDNISolone SOD SUCC 125 MG/2 ML IVPush SCH ×4 (05:11→23:19)
[2017-11-13] MEDS: HEPARIN 5,000 UNITS/ML, 1ML SQ SCH ×3 (06:31→23:19)
[2017-11-13] MEDS: ALBUTEROL/IPRATROPIUM 2.5MG/0.5MG, 3 ML NPPB SCH ×5 (07:15→19:03)
[2017-11-13] MEDS ORDERED: LORazepam 2 MG/ML, 1ML ONE (07:29)
[2017-11-13] MEDS ORDERED: LORazepam 2 MG/ML, 1ML IVPush ONE (07:30)
[2017-11-13 07:33] VITALS: BP 164/84
[2017-11-13 07:50] LABS: O2 FLOW 6 L/min
[2017-11-13] MEDS ORDERED: MORPHINE SULFATE 4 MG/ML, 1ML IVPush PRN (08:00)
[2017-11-13 08:03] LABS: ALANINE AMINOTRANSFERASE 46 U/L (12-78); ALBUMIN 3.7 g/dL (3.4-5.0); ANION GAP 13 mmol/L (5-15); CALCIUM 8.3 mg/dL (8.5-10.1); CHLORIDE 99 mmol/L (98-107); CREATININE 1.19 mg/dL (0.55-1.02)
[2017-11-13 08:05] LABS: ALKALINE PHOSPHATASE 70 U/L (45-117); BILIRUBIN,TOTAL 0.5 mg/dL (0.2-1.0); TOTAL PROTEIN 6.8 g/dL (6.4-8.2)
[2017-11-13 08:34] LABS: BASOPHILS # (AUTO) 0.01 x10^3/uL (0-0.1); BASOPHILS % (AUTO) 0 % (0-1); EOSINOPHILS % (AUTO) 0 % (1-7); LYMPHOCYTES % (AUTO) 13 % (22-44); MD NO; MEAN CORPUSCULAR HEMOGLOBIN 29.7 pg (27.0-34.8); MEAN CORPUSCULAR HGB CONC 33.2 g/dL (32.4-35.8); MEAN CORPUSCULAR VOLUME 89.6 fL (80-100); MEAN PLATELET VOLUME 8.2 fL (7.4-10.4); MONOCYTES # (AUTO) 0.57 x10^3/uL (0.2-0.8); MONOCYTES % (AUTO) 5 % (2-9); NEUTROPHILS # (AUTO) 9.77 x10^3/uL (1.8-6.8); NEUTROPHILS % (AUTO) 82 % (42-75); PLATELET COUNT 361 x10^3/uL (130-400); RED BLOOD COUNT 3.87 x10^6/uL (3.82-5.3); RED CELL DISTRIBUTION WIDTH 15.2 % (9.6-15.2)
[2017-11-13] MEDS: DOCUSATE 100 MG CAPSULE PO SCH ×2 (08:45→21:13)
[2017-11-13] MEDS: DOXYCYCLINE 100MG TABLET PO SCH ×2 (08:45→21:13)
[2017-11-13] MEDS: SIMVASTATIN 40 MG TABLET PO SCH (08:45)
[2017-11-13] MEDS: ASPIRIN 81 MG TABLET EC PO SCH (08:45)
[2017-11-13] MEDS: PAROXETINE 20 MG TABLET PO SCH (08:45)
[2017-11-13] MEDS: SENNA/DOCUSATE TABLET PO SCH (08:45)
[2017-11-13] MEDS: OMEGA-3/FISH OIL CAPSULE PO SCH (08:45)
[2017-11-13] MEDS: CHOLECALCIFEROL 1,000 UNIT TABLET PO SCH (08:45)
[2017-11-13] MEDS: MULTIVITAMIN 1 TABLET PO SCH (08:46)
[2017-11-13] MEDS: CALCIUM CITRATE 950 MG TABLET PO SCH (11:45)
[2017-11-13 14:59] VITALS: BP 104/63
[2017-11-13] MEDS: FLUTICASONE/VILANTEROL 200-25MCG/INH INH SCH (17:40)
[2017-11-13 19:49] VITALS: BP 146/88
[2017-11-14 01:17] VITALS: BP 148/72
[2017-11-14 03:04] VITALS: BP 110/63
[2017-11-14] MEDS: ALBUTEROL/IPRATROPIUM 2.5MG/0.5MG, 3 ML NPPB SCH ×4 (04:39→20:06)
[2017-11-14 05:12] LABS: ANION GAP 9 mmol/L (5-15); CALCIUM 8.3 mg/dL (8.5-10.1); CHLORIDE 102 mmol/L (98-107)
[2017-11-14 05:13] LABS: CREATININE 0.91 mg/dL (0.55-1.02)
[2017-11-14] MEDS: methylPREDNISolone SOD SUCC 125 MG/2 ML IVPush SCH ×3 (05:13→21:05)
[2017-11-14] MEDS: HEPARIN 5,000 UNITS/ML, 1ML SQ SCH ×3 (06:33→23:39)
[2017-11-14] MEDS: OMEGA-3/FISH OIL CAPSULE PO SCH (08:17)
[2017-11-14] MEDS: DOXYCYCLINE 100MG TABLET PO SCH ×2 (08:17→21:05)
[2017-11-14] MEDS: CHOLECALCIFEROL 1,000 UNIT TABLET PO SCH (08:17)
[2017-11-14] MEDS: MULTIVITAMIN 1 TABLET PO SCH (08:17)
[2017-11-14] MEDS: SIMVASTATIN 40 MG TABLET PO SCH (08:17)
[2017-11-14] MEDS: ASPIRIN 81 MG TABLET EC PO SCH (08:18)
[2017-11-14] MEDS: SENNA/DOCUSATE TABLET PO SCH (08:18)
[2017-11-14] MEDS: DOCUSATE 100 MG CAPSULE PO SCH ×2 (08:18→21:05)
[2017-11-14] MEDS: PAROXETINE 20 MG TABLET PO SCH (08:18)
[2017-11-14 08:46] VITALS: BP 125/71
[2017-11-14] MEDS: CALCIUM CITRATE 950 MG TABLET PO SCH (14:48)
[2017-11-14 14:50] VITALS: BP 145/78
[2017-11-14 15:50] VITALS: BP 130/78
[2017-11-14] MEDS: FLUTICASONE/VILANTEROL 200-25MCG/INH INH SCH (17:00)
[2017-11-14 19:16] VITALS: BP 172/82
[2017-11-14] MEDS ORDERED: OMNIPAQUE 350 MG/ML, 100ML BOTTLE ONE (19:55)
[2017-11-15] MEDS: methylPREDNISolone SOD SUCC 125 MG/2 ML IVPush SCH ×4 (03:38→23:14)
[2017-11-15 03:41] VITALS: BP 151/76
[2017-11-15] MEDS: ALBUTEROL/IPRATROPIUM 2.5MG/0.5MG, 3 ML NPPB SCH ×4 (06:15→19:18)
[2017-11-15 07:13] VITALS: BP 164/77
[2017-11-15] MEDS: PAROXETINE 20 MG TABLET PO SCH (08:46)
[2017-11-15] MEDS: SENNA/DOCUSATE TABLET PO SCH (08:46)
[2017-11-15] MEDS: SIMVASTATIN 40 MG TABLET PO SCH (08:46)
[2017-11-15] MEDS: ASPIRIN 81 MG TABLET EC PO SCH (08:46)
[2017-11-15] MEDS: CHOLECALCIFEROL 1,000 UNIT TABLET PO SCH (08:46)
[2017-11-15] MEDS: DOCUSATE 100 MG CAPSULE PO SCH ×2 (08:46→21:12)
[2017-11-15] MEDS: OMEGA-3/FISH OIL CAPSULE PO SCH (08:46)
[2017-11-15] MEDS: MULTIVITAMIN 1 TABLET PO SCH (08:46)
[2017-11-15] MEDS: HEPARIN 5,000 UNITS/ML, 1ML SQ SCH ×2 (08:47→17:20)
[2017-11-15] MEDS: DOXYCYCLINE 100MG TABLET PO SCH ×2 (08:47→21:12)
[2017-11-15] MEDS: CALCIUM CITRATE 950 MG TABLET PO SCH (11:16)
[2017-11-15] MEDS: LOSARTAN 50MG TABLET PO SCH (11:16)
[2017-11-15 12:24] VITALS: BP 143/75
[2017-11-15] MEDS ORDERED: FLUT1BLS INH (16:16)
[2017-11-15] MEDS ORDERED: PRED5TAB PO (16:16)
[2017-11-15] MEDS ORDERED: DOXY100T PO (16:16)
[2017-11-15] MEDS ORDERED: LOSA50TA2 PO (16:16)
[2017-11-15] MEDS ORDERED: IPRA3AMP NPPB (16:16)
[2017-11-15] MEDS ORDERED: FLUT12AE2 INH (16:30)
[2017-11-15] MEDS: FLUTICASONE/VILANTEROL 200-25MCG/INH INH SCH (17:20)
[2017-11-15 18:43] VITALS: BP 132/63
[2017-11-16] MEDS: HEPARIN 5,000 UNITS/ML, 1ML SQ SCH ×3 (02:32→18:36)
[2017-11-16 02:45] VITALS: BP 146/70
[2017-11-16] MEDS: methylPREDNISolone SOD SUCC 125 MG/2 ML IVPush SCH ×3 (05:29→18:36)
[2017-11-16 06:38] VITALS: BP 161/73
[2017-11-16] MEDS: ALBUTEROL/IPRATROPIUM 2.5MG/0.5MG, 3 ML NPPB SCH ×5 (07:00→19:57)
[2017-11-16] MEDS: OMEGA-3/FISH OIL CAPSULE PO SCH (09:00)
[2017-11-16] MEDS: ASPIRIN 81 MG TABLET EC PO SCH (10:22)
[2017-11-16] MEDS: CALCIUM CITRATE 950 MG TABLET PO SCH (10:22)
[2017-11-16] MEDS: DOCUSATE 100 MG CAPSULE PO SCH ×2 (10:23→20:56)
[2017-11-16] MEDS: SENNA/DOCUSATE TABLET PO SCH (10:23)
[2017-11-16] MEDS: CHOLECALCIFEROL 1,000 UNIT TABLET PO SCH (10:23)
[2017-11-16] MEDS: LOSARTAN 50MG TABLET PO SCH (10:23)
[2017-11-16] MEDS: DOXYCYCLINE 100MG TABLET PO SCH ×2 (10:23→20:56)
[2017-11-16] MEDS: PAROXETINE 20 MG TABLET PO SCH (10:23)
[2017-11-16] MEDS: MULTIVITAMIN 1 TABLET PO SCH (10:23)
[2017-11-16] MEDS: SIMVASTATIN 40 MG TABLET PO SCH (10:24)
[2017-11-16 12:15] VITALS: BP 155/79
[2017-11-16] MEDS: FLUTICASONE/VILANTEROL 200-25MCG/INH INH SCH (18:36)
[2017-11-16 19:16] VITALS: BP 103/61
[2017-11-17 01:07] VITALS: BP 129/73
[2017-11-17] MEDS: methylPREDNISolone SOD SUCC 125 MG/2 ML IVPush SCH ×4 (01:07→21:22)
[2017-11-17] MEDS: HEPARIN 5,000 UNITS/ML, 1ML SQ SCH ×3 (02:30→18:08)
[2017-11-17 06:35] VITALS: BP 133/73
[2017-11-17] MEDS: ALBUTEROL/IPRATROPIUM 2.5MG/0.5MG, 3 ML NPPB SCH ×4 (08:07→19:10)
[2017-11-17] MEDS: ASPIRIN 81 MG TABLET EC PO SCH (08:23)
[2017-11-17] MEDS: OMEGA-3/FISH OIL CAPSULE PO SCH (08:23)
[2017-11-17] MEDS: PAROXETINE 20 MG TABLET PO SCH (08:24)
[2017-11-17] MEDS: CHOLECALCIFEROL 1,000 UNIT TABLET PO SCH (08:24)
[2017-11-17] MEDS: SIMVASTATIN 40 MG TABLET PO SCH (08:24)
[2017-11-17] MEDS: LOSARTAN 50MG TABLET PO SCH (08:24)
[2017-11-17] MEDS: DOXYCYCLINE 100MG TABLET PO SCH ×2 (08:24→21:21)
[2017-11-17] MEDS: DOCUSATE 100 MG CAPSULE PO SCH ×2 (08:25→21:21)
[2017-11-17] MEDS: MULTIVITAMIN 1 TABLET PO SCH (08:25)
[2017-11-17] MEDS: SENNA/DOCUSATE TABLET PO SCH (08:25)
[2017-11-17] MEDS: CALCIUM CITRATE 950 MG TABLET PO SCH (13:28)
[2017-11-17 13:30] VITALS: BP 105/55
[2017-11-17] MEDS: FLUTICASONE/VILANTEROL 200-25MCG/INH INH SCH (18:08)
[2017-11-17 20:00] VITALS: BP 106/47
[2017-11-18 02:00] VITALS: BP 139/84
[2017-11-18] MEDS: HEPARIN 5,000 UNITS/ML, 1ML SQ SCH ×2 (02:30→10:56)
[2017-11-18] MEDS: methylPREDNISolone SOD SUCC 125 MG/2 ML IVPush SCH ×2 (03:54→09:49)
[2017-11-18] MEDS: ALBUTEROL/IPRATROPIUM 2.5MG/0.5MG, 3 ML NPPB SCH ×2 (07:30→11:00)
[2017-11-18 08:30] VITALS: BP 126/71
[2017-11-18] MEDS: DOCUSATE 100 MG CAPSULE PO SCH (08:57)
[2017-11-18] MEDS: LOSARTAN 50MG TABLET PO SCH (08:58)
[2017-11-18] MEDS: OMEGA-3/FISH OIL CAPSULE PO SCH (08:59)
[2017-11-18] MEDS: ASPIRIN 81 MG TABLET EC PO SCH (08:59)
[2017-11-18] MEDS: MULTIVITAMIN 1 TABLET PO SCH (09:00)
[2017-11-18] MEDS: PAROXETINE 20 MG TABLET PO SCH (09:00)
[2017-11-18] MEDS: DOXYCYCLINE 100MG TABLET PO SCH (09:00)
[2017-11-18] MEDS: SENNA/DOCUSATE TABLET PO SCH (09:00)
[2017-11-18] MEDS: CHOLECALCIFEROL 1,000 UNIT TABLET PO SCH (09:02)
[2017-11-18] MEDS: SIMVASTATIN 40 MG TABLET PO SCH (09:02)
== END 2017-11-18 11:51 | disposition home health service (06) | DRG 190 ==
LOC: ED 19:46 → EDIP 21:19 → 3NE 22:10
PROVIDERS: ADMIT Internal Medicine; ATTEND Internal Medicine
DX: J44.1 Chronic obstructive pulmonary disease with (acute) exacerbation (principal); N17.0 Acute kidney failure with tubular necrosis; E87.1 Hypo-osmolality and hyponatremia; J96.10 Chronic respiratory failure, unspecified whether with hypoxia or hypercapnia; E78.5 Hyperlipidemia, unspecified; F32.9 Major depressive disorder, single episode, unspecified; F41.9 Anxiety disorder, unspecified; I10 Essential (primary) hypertension; I44.7 Left bundle-branch block, unspecified; M81.0 Age-related osteoporosis without current pathological fracture; Z66 Do not resuscitate; Z80.8 Family history of malignant neoplasm of other organs or systems; Z87.891 Personal history of nicotine dependence; Z83.3 Family history of diabetes mellitus; Z86.73 Personal history of transient ischemic attack (TIA), and cerebral infarction without residual deficits
CPT/HCPCS: 0399T; 36415; 36600; 71045; 71275; 80047; 80048; 80053; 80061; 81001; 82803; 83036; 83605; 83735; 83880; 84100; 84439; 84443; 84484; 85025; 87040; 87086; 87205; 93005; 93306; 94640; 94644; 99285; J1644; J7620; Q9967; J0360; J2060; J2270; J2930; J7512

== ENCOUNTER 2018-01-11 04:38 | Observation (INO) | payer MEDICARE, MEDICAID ==
[~2018-01-11] VITALS: Ht 165.1 cm; Wt 67.3 kg
[~2018-01-11 04:38] MED LIST changes: +DOXY100T PO; +FLUT12AE2 INH; +FLUT1BLS INH; +IBUP-1623 PO; -IBUP200C5 PO; -IPRA3AMP NPPB; +IPRA3AMP30 NPPB; +LOSA50TA2 PO; +METH4TAB PO; +PRED5TAB PO
[2018-01-11] MEDS ORDERED: ALBUTEROL/IPRATROPIUM 2.5MG/0.5MG, 3 ML ONE ×2 (04:40→05:27)
[2018-01-11] MEDS ORDERED: PLEASE ENTER HEIGHT AND WEIGHT MC SCH (05:30)
[2018-01-11 06:23] LABS: BASOPHILS # (AUTO) 0.16 x10^3/uL (0-0.1); BASOPHILS % (AUTO) 1 % (0-1); EOSINOPHILS # (AUTO) 0.83 x10^3/uL (0-0.4); EOSINOPHILS % (AUTO) 7 % (1-7); LYMPHOCYTES # (AUTO) 1.72 x10^3/uL (1-3.4); LYMPHOCYTES % (AUTO) 15 % (22-44); MD NO; MEAN CORPUSCULAR HEMOGLOBIN 30.2 pg (27.0-34.8); MEAN CORPUSCULAR HGB CONC 33.9 g/dL (32.4-35.8); MEAN CORPUSCULAR VOLUME 89.2 fL (80-100); MEAN PLATELET VOLUME 7.2 fL (7.4-10.4); MONOCYTES # (AUTO) 0.91 x10^3/uL (0.2-0.8); MONOCYTES % (AUTO) 8 % (2-9); NEUTROPHILS # (AUTO) 8.22 x10^3/uL (1.8-6.8); NEUTROPHILS % (AUTO) 69 % (42-75); PLATELET COUNT 295 x10^3/uL (130-400); RED BLOOD COUNT 3.85 x10^6/uL (3.82-5.3); RED CELL DISTRIBUTION WIDTH 14.4 % (9.6-15.2)
[2018-01-11 06:36] LABS: ALBUMIN 3.4 g/dL (3.4-5.0); ANION GAP 6 mmol/L (5-15); CALCIUM 8.6 mg/dL (8.5-10.1); CHLORIDE 101 mmol/L (98-107); CREATININE 1.03 mg/dL (0.55-1.02)
[2018-01-11 06:40] LABS: TROPONIN I 0.068 ng/mL (0.000-0.045)
[2018-01-11] MEDS ORDERED: OMNIPAQUE 350 MG/ML, 100ML BOTTLE ONE (07:30)
[2018-01-11] MEDS ORDERED: GUAIFENESIN/DM 200-20MG, 10ML UDC PO PRN (09:30)
[2018-01-11] MEDS ORDERED: morphine SULFATE 10 MG/ML, 1ML IVPush PRN (09:30)
[2018-01-11] MEDS ORDERED: DOCUSATE 100 MG CAPSULE PO PRN (09:30)
[2018-01-11] MEDS ORDERED: ONDANSETRON ODT 4 MG PO PRN (09:30)
[2018-01-11] MEDS ORDERED: ACETAMINOPHEN 325 MG TABLET PO PRN (09:30)
[2018-01-11] MEDS ORDERED: ONDANSETRON 2MG/ML, 2ML IVPush PRN (09:30)
[2018-01-11] MEDS ORDERED: ALBUTEROL/IPRATROPIUM 2.5MG/0.5MG, 3 ML NPPB PRN (10:00)
[2018-01-11] MEDS: HEPARIN 5,000 UNITS/ML, 1ML SQ SCH ×2 (10:50→17:59)
[2018-01-11] MEDS ORDERED: ALBUTEROL/IPRATROPIUM 2.5MG/0.5MG, 3 ML NPPB SCH (11:00)
[2018-01-11] MEDS: FLUTICASONE/VILANTEROL 100-25MCG/INH INH SCH (12:42)
[2018-01-11 13:55] LABS: TROPONIN I 0.129 ng/mL (0.000-0.045)
[2018-01-11 15:09] VITALS: BP 122/71
[2018-01-11] MEDS: ALBUTEROL/IPRATROPIUM 2.5MG/0.5MG, 3 ML NPPB SCH ×2 (15:10→20:00)
[2018-01-11 19:18] VITALS: BP 123/75
[2018-01-11 19:55] LABS: TROPONIN I 0.117 ng/mL (0.000-0.045)
[2018-01-11] MEDS ORDERED: PAROXETINE 20 MG TABLET PO SCH (21:00)
[2018-01-11] MEDS ORDERED: TEMPLATE NON-FORMULARY MED. (Fluticasone Propionate (Flovent Hfa 220 Mcg/Inh) 1 PUFF) INH SCH (21:00)
[2018-01-11] MEDS ORDERED: SIMVASTATIN 40 MG TABLET PO SCH (21:00)
[2018-01-11] MEDS: CARVEDILOL 6.25 MG TABLET PO SCH (21:35)
[2018-01-12] MEDS: HEPARIN 5,000 UNITS/ML, 1ML SQ SCH ×2 (01:40→09:03)
[2018-01-12 01:51] VITALS: BP 130/72
[2018-01-12] MEDS: ALBUTEROL/IPRATROPIUM 2.5MG/0.5MG, 3 ML NPPB SCH ×2 (07:40→10:48)
[2018-01-12 08:00] VITALS: BP 143/80
[2018-01-12] MEDS ORDERED: MULTIVITAMIN 1 TABLET PO SCH (09:00)
[2018-01-12] MEDS ORDERED: SIMVASTATIN 40 MG TABLET PO SCH ×2 (09:00→21:00)
[2018-01-12] MEDS ORDERED: TEMPLATE NON-FORMULARY MED. (Tiotropium Br/Olodaterol HCl (Stiolto Respimat Inhal Spray) 2 INH SCH (09:00)
[2018-01-12] MEDS ORDERED: OMEGA-3/FISH OIL CAPSULE PO SCH (09:00)
[2018-01-12] MEDS ORDERED: ASPIRIN 81 MG TABLET EC PO SCH (09:00)
[2018-01-12] MEDS ORDERED: CHOLECALCIFEROL 1,000 UNIT TABLET PO SCH (09:00)
[2018-01-12] MEDS ORDERED: PAROXETINE 20 MG TABLET PO SCH ×2 (09:00)
[2018-01-12] MEDS ORDERED: CALCIUM CITRATE 600 MG PO SCH (09:00)
[2018-01-12] MEDS: CARVEDILOL 6.25 MG TABLET PO SCH (09:02)
[2018-01-12] MEDS: FLUTICASONE/VILANTEROL 100-25MCG/INH INH SCH (09:04)
[2018-01-12 09:48] LABS: ALBUMIN 3.7 g/dL (3.4-5.0); ANION GAP 8 mmol/L (5-15); CALCIUM 8.5 mg/dL (8.5-10.1); CHLORIDE 102 mmol/L (98-107); CREATININE 0.96 mg/dL (0.55-1.02)
[2018-01-12] MEDS ORDERED: FLUT1AER INH (11:29)
[2018-01-12] MEDS ORDERED: PRED20TA PO (11:29)
== END 2018-01-12 14:33 | disposition home or self-care (01) ==
LOC: ED 05:19 → EDIP 08:21 → INTOOBSV 08:21 → 5SO 09:00
PROVIDERS: ADMIT Internal Medicine; ATTEND Internal Medicine
DX: J44.1 Chronic obstructive pulmonary disease with (acute) exacerbation (principal); J96.01 Acute respiratory failure with hypoxia; E78.5 Hyperlipidemia, unspecified; F41.1 Generalized anxiety disorder; I10 Essential (primary) hypertension; M81.0 Age-related osteoporosis without current pathological fracture; Z86.73 Personal history of transient ischemic attack (TIA), and cerebral infarction without residual deficits; Z87.891 Personal history of nicotine dependence
CPT/HCPCS: 36415; 71045; 71275; 80048; 80069; 82040; 84443; 84484; 85025; 93005; 94640; 96372; 99285; G0378; J1644; J7512; J7620; Q9967